=== PATIENT | female | born 1980 | race Asian ===

== ENCOUNTER 2018-12-12 10:28 | Inpatient (IN) | payer OTHER ==
[2018-12-12] MEDS ORDERED: CARBOPROST 250 MCG INJ IM ×2 (11:30→17:30)
[2018-12-12] MEDS ORDERED: BUTORPHANOL 2 MG INJ IV (11:30)
[2018-12-12] MEDS ORDERED: MISOPROSTOL 200 MCG TAB PR ×2 (11:30→17:30)
[2018-12-12] MEDS ORDERED: METHYLERGONOVINE 0.2 MG INJ IM ×2 (11:30→17:30)
[2018-12-12] MEDS ORDERED: LIDOCAINE 1% (MPF) 30 ML INJ INJ (11:30)
[2018-12-12] MEDS ORDERED: OXYTOCIN 30 UNITS/LR 500 ML IV ×2 (11:30→17:30)
[2018-12-12] MEDS: LACTATED RINGER'S 1,000 ML IV ×2 (11:58→14:05)
[2018-12-12 12:18] LABS: ADD MAN DIFF? NO
[2018-12-12 12:19] LABS: WHITE BLOOD COUNT 13.2 10^3/ul (4.8-10.8)
[2018-12-12 12:19] LABS: BASOPHIL # 0.1 10^3/ul (0.0-0.1); BASOPHILS % 0.5 % (0.0-2.0); EOSINOPHILS % 0.3 % (0.0-7.0); HEMATOCRIT 32.2 % (37.0-47.0); HEMOGLOBIN 9.7 g/dl (12.0-16.0); LYMPHOCYTES # 1.7 10^3/ul (0.8-2.9); LYMPHOCYTES % 12.6 % (15.0-51.0); MEAN CORPUSCULAR HEMOGLOBIN 22.5 pg (29.0-33.0); MEAN CORPUSCULAR HGB CONC 30.1 g/dl (32.0-37.0); MEAN CORPUSCULAR VOLUME 74.7 fl (82.0-101.0); MONOCYTE # 0.8 10^3/ul (0.3-0.9); MONOCYTES % 5.8 % (0.0-11.0); NEUTROPHIL # 10.1 10^3/ul (1.6-7.5); NEUTROPHILS % 76.5 % (39.0-77.0); PLATELET COUNT 411 10^3/UL (140-415); RED BLOOD COUNT 4.31 10^6/ul (4.20-5.40)
[2018-12-12 12:39] LABS: INR 0.87; PROTIME 11.9 Sec (11.9-14.9); PT RATIO 0.9
[2018-12-12 12:40] LABS: PARTIAL THROMBOPLASTIN TIME 26.2 Sec (23.0-35.0)
[2018-12-12 13:15] LABS: HEPATITIS B SURFACE ANTIGEN NEGATIVE (NEGATIVE)
[2018-12-12] MEDS ORDERED: FENTAnyl 2MCG/ML-ROPIV 0.2% 100 ML (14:20)
[2018-12-12] MEDS ORDERED: NALOXONE (0.4 MG/ML) INJ IV (14:30)
[2018-12-12] MEDS ORDERED: ONDANSETRON 4 MG INJ IV (14:30)
[2018-12-12] MEDS: FENTAnyl 2MCG/ML-ROPIV 0.2% 100 ML BAG EPI (14:33)
[2018-12-12 15:05] LABS: RAPID PLASMA REAGIN NONREACTIVE (NR)
[2018-12-12] MEDS: MINERAL OIL LIGHT 10 ML VIAL TOP (16:55)
[2018-12-12] MEDS: OXYTOCIN 30 UNITS/LR 500 ML IV ×3 (17:03→17:17)
[2018-12-12] MEDS: IBUPROFEN 600 MG TAB PO ×2 (17:16→23:28)
[2018-12-12] MEDS: WITCH HAZEL/GLYCERIN PAD PR (21:02)
[2018-12-12] MEDS: BENZOCAINE 20% 56 ML SPRAY TOP (21:03)
[2018-12-12] MEDS: LANOLIN HPA 1 PKT TOP (21:03)
[2018-12-12] MEDS: LACTATED RINGER'S 1,000 ML IV* (21:39)
[2018-12-13] MEDS: IBUPROFEN 600 MG TAB PO ×4 (05:26→17:39)
[2018-12-13 08:06] LABS: ADD MAN DIFF? NO
[2018-12-13 08:11] LABS: BASOPHIL # 0.1 10^3/ul (0.0-0.1); BASOPHILS % 0.4 % (0.0-2.0); EOSINOPHILS # 0.1 10^3/ul (0.0-0.5); EOSINOPHILS % 0.7 % (0.0-7.0); HEMATOCRIT 27.1 % (37.0-47.0); LYMPHOCYTES # 1.9 10^3/ul (0.8-2.9); LYMPHOCYTES % 12.8 % (15.0-51.0); MEAN CORPUSCULAR HEMOGLOBIN 22.4 pg (29.0-33.0); MEAN CORPUSCULAR HGB CONC 29.5 g/dl (32.0-37.0); MEAN CORPUSCULAR VOLUME 75.9 fl (82.0-101.0); MEAN PLATELET VOLUME 9.7 fl (7.4-10.4); MONOCYTES % 6.9 % (0.0-11.0); NEUTROPHIL # 11.4 10^3/ul (1.6-7.5); PLATELET COUNT 292 10^3/UL (140-415); RED BLOOD COUNT 3.57 10^6/ul (4.20-5.40); RED CELL DISTRIBUTION WIDTH 18.2 % (11.5-14.5)
[2018-12-14] MEDS: IBUPROFEN 600 MG TAB PO ×3 (00:30→12:30)
[2018-12-14] MEDS: HYDROCODONE/APAP (5/325) TAB PO (05:55)
[2018-12-14] MEDS: DIPHTH/TET/ACEL PERTUSS (ADULT) 0.5 ML VIAL IM* (09:47)
== END 2018-12-14 14:45 | disposition home or self-care (01) | DRG 807 ==
LOC: L-D 10:28 → PP1 18:30
PROVIDERS: Obstetrics & Gynecology
PROC: 10E0XZZ Delivery of Products of Conception, External Approach (ICD-10-PCS; principal; 2018-12-12)
PROC: 0HQ9XZZ Repair Perineum Skin, External Approach (ICD-10-PCS; 2018-12-12)
DX: O77.0 Labor and delivery complicated by meconium in amniotic fluid (principal); Z37.0 Single live birth; O70.0 First degree perineal laceration during delivery; O69.81X0 Labor and delivery complicated by cord around neck, without compression, not applicable or unspecified; Z3A.39 39 weeks gestation of pregnancy
CPT/HCPCS: 62319; 85025; 85610; 85730; 86592; 86850; 86900; 86901; 87340; 99464